=== PATIENT | male | born 1995 | race Caucasian/White ===

== ENCOUNTER 2018-10-29 15:29 | Emergency (ER) | payer OTHER ==
[~2018-10-29] VITALS: Ht 175.3 cm; Wt 79.4 kg
[2018-10-29 15:54] VITALS: BP_SYST 143
--- NOTE | 2018-10-29 15:59 | NUR ---
Patient triaged and placed in waiting room. VSS and patient appears in no acute distress at this time. Accompanied by girlfriend, awaiting available bed, and MD notified of need for MSE.
--- NOTE | 2018-10-29 16:15 | NUR ---
Patient arrived via POV, AAOx4, and accompanied by family. Patient c/c of right lateral ankle injury. Patient states he was playing soc[employer] and rolled ankle. Patient states he went home and tried to rest it. 8 pain continued without relief. +2 peripheral pulses noted to affected extremity. Will continue to follow up and monitor.
--- NOTE | 2018-10-29 17:50 | NUR ---
Patient to ER bed 3 to gown for evaluation. Side rails up. Assumed care.
--- NOTE | 2018-10-29 18:40 | NUR ---
ER at bedside examining patient.
[2018-10-29] MEDS ORDERED: KETOROLAC TROMETHAMINE 30 MG VIAL IM ONE (19:15)
[2018-10-29 19:25] VITALS: BP_SYST 128
== END 2018-10-29 18:40 | disposition home or self-care (01) ==
LOC: SED 15:29
DX: S93.401A Sprain of unspecified ligament of right ankle, initial encounter (principal); X50.9XXA Other and unspecified overexertion or strenuous movements or postures, initial encounter; Y93.89 Activity, other specified; Y92.89 Other specified places as the place of occurrence of the external cause; Y99.8 Other external cause status
CPT/HCPCS: 73610; 96372; 99283; J1885

== ENCOUNTER 2021-01-03 00:49 | Emergency (ER) | payer SELFPAY ==
[~2021-01-03] VITALS: Ht 172.7 cm; Wt 79.4 kg
[2021-01-03 00:49] VITALS: BP_SYST 150
--- NOTE | 2021-01-03 00:49 | NUR ---
Patient to ER bed 5 to gown for evaluation. Side rails up. Report given to lorri.
--- NOTE | 2021-01-03 01:00 | NUR ---
pt a&o x4 from home c/o anxiety that started 2 days ago after he experienced a stomach pain. pt has not taken any medication for the anxiety. pt no longer has the pain. pt denies nausea/vomiting/diarrhea. pt denies SI/HI. pt denies substance use.
--- NOTE | 2021-01-03 01:22 | NUR ---
pt pacing back in forth in room, unable to sit down because he "is too anxious".
[2021-01-03 01:27] LABS: BARBITURATE, URINE NEGATIVE (NEG <=200); BENZODIAZEPINE, URINE NEGATIVE (NEG <=150); CANNABINOID, URINE POSITIVE (NEG <=50); COCAINE, URINE NEGATIVE (NEG <=150); METHAMPHETAMINES SCREEN,URINE NEGATIVE (NEG <=500); OPIATE, URINE NEGATIVE (NEG <=100); PHENCYCLIDINE SCREEN,URINE NEGATIVE (NEG <=25); URINE AMPHETAMINE NEGATIVE (NEG <=500); URINE METHADONE NEGATIVE (NEG <=200); URINE OXYCODONE SCREEN NEGATIVE (NEG <=100); URINE PROPOXYPHENE SCREEN NEGATIVE (NEG <=300)
[2021-01-03 01:28] LABS: UR TRICYCLIC ANTIDEPRESSANTS NEGATIVE (NEG <=300)
--- NOTE | 2021-01-03 01:36 | NUR ---
ER Dr. Carreno at bedside examining patient.
[2021-01-03] MEDS: DIPHENHYDRAMINE INJ 50 MG/ML VIAL IM ONE (01:44)
--- NOTE | 2021-01-03 01:48 | NUR ---
pt medicated per md order. pt tolerated well.
[2021-01-03 02:25] VITALS: BP_SYST 131
--- NOTE | 2021-01-03 02:25 | NUR ---
Patient given written and verbal discharge instructions and verbalizes understanding. ER MD discussed with patient the results and treatment provided. Patient in stable condition. Opportunity for questions provided and answered. Medication side effect fact sheet provided.
[2021-01-03] MEDS ORDERED: PRO40 PO (21:18)
[2021-01-03] MEDS ORDERED: METO-290 PO (21:18)
== END 2021-01-03 02:25 | disposition home or self-care (01) ==
LOC: SED 00:49
DX: G25.71 Drug induced akathisia (principal); F12.90 Cannabis use, unspecified, uncomplicated
CPT/HCPCS: 80307; 93005; 96372; 99284; J1200

== ENCOUNTER 2021-01-03 16:54 | Emergency (ER) | payer SELFPAY ==
[~2021-01-03] VITALS: Ht 170.2 cm; Wt 81.6 kg
[2021-01-03 17:04] VITALS: BP_SYST 99
--- NOTE | 2021-01-03 17:04 | NUR ---
Placed in room 4 . Placed on traffic monitor specialist, blood pressure machine and pulse oximeter. To gown for exam. Side rails up.
--- NOTE | 2021-01-03 17:28 | NUR ---
ER DR. PLAZA AT THE BEDSIDE EXAMINING PT
--- NOTE | 2021-01-03 17:50 | NUR ---
# 20 gauge angiocath placed to LFA. Use of asceptic technique. Opsite placed over site. Blood return noted. Blood for lab drawn from site. Flushed with 10 cc of normal saline. No evidence of infiltration noted. Patient tolerated well.
[2021-01-03 17:58] LABS: BASOPHILS # (AUTO) 0.1 K/uL (0.0-0.2); BASOPHILS % (AUTO) 0.5 % (0.0-2.0); EOSINOPHILS % (AUTO) 0.1 % (0.0-4.0); HEMATOCRIT 44.1 % (36-54); HEMOGLOBIN 15.6 g/dL (14.0-18.0); LYMPHOCYTES # (AUTO) 1.3 K/uL (1.0-5.5); LYMPHOCYTES % (AUTO) 9.8 % (20.5-51.5); MEAN CORPUSCULAR HEMOGLOBIN 31 pg (27-31); MEAN CORPUSCULAR HGB CONC 35 % (32-36); MEAN CORPUSCULAR VOLUME 89 fL (79.0-98.0); MONOCYTES # (AUTO) 0.6 K/uL (0.0-1.0); MONOCYTES % (AUTO) 4.2 % (1.7-9.3); NEUTROPHILS # (AUTO) 11.3 K/uL (1.8-7.7); NEUTROPHILS % (AUTO) 85.4 % (40.0-70.0); PLATELET COUNT (AUTO) 321 K/uL (130-430); RED BLOOD CELL COUNT(AUTO) 4.98 MIL/uL (4.2-6.2); RED CELL DISTRIBUTION WIDTH 12.9 % (9.0-15.0); WHITE BLOOD COUNT (AUTO) 13.2 K/uL (4.8-10.8)
[2021-01-03] MEDS: NACL 0.9% 1,000 ML IV ONE (18:09)
[2021-01-03] MEDS: DIPHENHYDRAMINE INJ 50 MG/ML VIAL IVP ONE ×2 (18:09→20:07)
[2021-01-03 18:10] LABS: CALCIUM 9.3 mg/dL (8.4-11.0); CREATININE 1.06 mg/dL (0.55-1.30); POTASSIUM 3.6 mmol/L (3.5-5.1)
[2021-01-03] MEDS: PANTOPRAZOLE SODIUM 40 MG/VIAL (PROTONIX) IVP ONE (18:10)
[2021-01-03] MEDS: METOCLOPRAMIDE HCL 10 MG/2 ML VIAL IVP ONE ×2 (18:10→20:04)
[2021-01-03] MEDS: MORPHINE 2 MG/ML INJ. SYRINGE IVP ONE ×2 (18:10→20:05)
[2021-01-03 18:16] LABS: ALBUMIN 4.6 g/dL (3.4-4.8); TOTAL BILIRUBIN 0.6 mg/dL (0.0-1.0)
--- NOTE | 2021-01-03 18:22 | NUR ---
PT REPORTS RELIEF WITH MEDICATIONS AND IS NOW RESTING IN BED
--- NOTE | 2021-01-03 18:56 | NUR ---
PT ABLE TO VOID , SPECIMEN COLLECTED AND SENT TO LAB
[2021-01-03 19:01] LABS: BILIRUBIN,URINE NEGATIVE (NEGATIVE); BLOOD, URINE NEGATIVE (NEGATIVE); CLARITY/URINE CLEAR (CLEAR); COLOR,URINE YELLOW (YELLOW); GLUCOSE,URINE NEGATIVE (NEGATIVE); KETONES,URINE 3+ (NEGATIVE); LEUKOCYTE ESTERASE ,URINE NEGATIVE (NEGATIVE); NITRITE, URINE NEGATIVE (NEGATIVE); PH,URINE 8.5 (5.0-8.0); PROTEIN URINE NEGATIVE (NEGATIVE); UROBILINOGEN,URINE 0.2 (0.2-1.0)
--- NOTE | 2021-01-03 19:13 | NUR ---
REPORT GIVEN TO MILO VELASCO FOR CONTINUING CARE
[2021-01-03 19:16] LABS: BACTERIA,URINE RARE /HPF (None Seen); RBC,URINE NONE SEEN /HPF (0-3); WBC,URINE NONE SEEN /HPF (0-3)
--- NOTE | 2021-01-03 19:38 | NUR ---
Dr. Charles at bedside to re-eval.
[2021-01-03 20:37] LABS: BARBITURATE, URINE NEGATIVE (NEG <=200); BENZODIAZEPINE, URINE NEGATIVE (NEG <=150); CANNABINOID, URINE POSITIVE (NEG <=50); COCAINE, URINE NEGATIVE (NEG <=150); METHAMPHETAMINES SCREEN,URINE NEGATIVE (NEG <=500); OPIATE, URINE POSITIVE (NEG <=100); PHENCYCLIDINE SCREEN,URINE NEGATIVE (NEG <=25); UR TRICYCLIC ANTIDEPRESSANTS NEGATIVE (NEG <=300); URINE AMPHETAMINE NEGATIVE (NEG <=500); URINE METHADONE NEGATIVE (NEG <=200); URINE OXYCODONE SCREEN NEGATIVE (NEG <=100); URINE PROPOXYPHENE SCREEN NEGATIVE (NEG <=300)
[2021-01-03] MEDS ORDERED: METO-290 PO (21:18)
[2021-01-03] MEDS ORDERED: PRO40 PO (21:18)
[2021-01-03 21:40] VITALS: BP_SYST 116
--- NOTE | 2021-01-03 21:40 | NUR ---
Patient given written and verbal discharge instructions and verbalizes understanding. ER MD discussed with patient the results and treatment provided. Patient in stable condition. ID arm band removed. IV catheter removed intact and dressing applied, no active bleeding. Rx of Reglan and Protonix given. Patient educated on pain management and to follow up with PMD. Pain Scale 0/10. Opportunity for questions provided and answered. Medication side effect fact sheet provided.
== END 2021-01-03 21:40 | disposition home or self-care (01) ==
LOC: SED 16:54
DX: R11.11 Vomiting without nausea (principal); F12.90 Cannabis use, unspecified, uncomplicated
CPT/HCPCS: 36415; 80053; 80307; 81000; 83690; 85025; 96361; 96374; 96375; 96376; 99284; C9113; J1200; J2270; J2765; J7030

== ENCOUNTER 2022-01-24 17:36 | Emergency (ER) | payer OTHER, MEDICAID ==
[~2022-01-24] VITALS: Ht 172.7 cm; Wt 83.9 kg
[~2022-01-24 17:36] MED LIST: METO-290 PO; PRO40 PO
[2022-01-24 17:48] VITALS: BP_SYST 142
[2022-01-24] MEDS ORDERED: IBUP-1969 PO (18:24)
[2022-01-24] MEDS ORDERED: IBUPROFEN 600 MG TABLET PO ONE (18:30)
[2022-01-24] MEDS ORDERED: HYDROcodone/ACETAMIN 5-325 MG TAB (NORCO/ VICODIN) PO ONE (20:15)
[2022-01-24] MEDS ORDERED: TRAM50TA PO (20:17)
[2022-01-24 20:37] VITALS: BP_SYST 118
== END 2022-01-24 20:36 | disposition home or self-care (01) ==
LOC: SED 17:36
DX: S06.0X0A Concussion without loss of consciousness, initial encounter (principal); S20.212A Contusion of left front wall of thorax, initial encounter; S30.0XXA Contusion of lower back and pelvis, initial encounter; S00.83XA Contusion of other part of head, initial encounter; V49.40XA Driver injured in collision with unspecified motor vehicles in traffic accident, initial encounter; Y93.89 Activity, other specified; Y92.89 Other specified places as the place of occurrence of the external cause; Y99.8 Other external cause status
CPT/HCPCS: 70450-TC; 70486-TC; 71045; 72170-TC; 76376; 93005; 99284

== ENCOUNTER 2022-09-20 15:45 | Emergency (ER) | payer MEDICAID, OTHER ==
[~2022-09-20] VITALS: Ht 170.2 cm; Wt 86.2 kg
[~2022-09-20 15:45] MED LIST changes: +IBUP-1969 PO; +TRAM50TA PO
[2022-09-20 16:11] VITALS: BP_SYST 123
--- NOTE | 2022-09-20 16:20 | NUR ---
# 20 gauge angiocath placed to left antecubital. Use of asceptic technique. Opsite placed over site. Blood return noted. Blood for lab drawn from site. Flushed with 10 cc of normal saline. No evidence of infiltration noted. Patient tolerated well.
--- NOTE | 2022-09-20 16:20 | NUR ---
Pt brought in by self from home. Chief complaint, uncontrollable NV. Pt is restless and encouraged to remain supine in bed for safety. Pt continues to attempt to stand up stating " I feel like I am going to pass out!" Pt assisted to safe position in bed. rails up bed down. Pt states has had intake of large amounts of marijuana. Pt is with right knee sprain from a New Years jadyn fall from excessive alcohol intake as stated per pt.
[2022-09-20] MEDS ORDERED: PANTOPRAZOLE SODIUM 40 MG/VIAL (PROTONIX) IVP ONE (16:45)
[2022-09-20] MEDS ORDERED: NACL 0.9% 1,000 ML IV ONE (16:45)
[2022-09-20] MEDS ORDERED: METOCLOPRAMIDE HCL 10 MG/2 ML VIAL IVP ONE (16:45)
[2022-09-20] MEDS ORDERED: DIPHENHYDRAMINE INJ 50 MG/ML VIAL IVP ONE (16:45)
[2022-09-20] MEDS ORDERED: ONDANSETRON HCL 4 MG/2 ML VIAL IVP ONE ×2 (16:45→18:30)
--- NOTE | 2022-09-20 16:45 | NUR ---
Note undone in EDM - 09/20/22 at 1708 by MARITZA # 20 gauge angiocath placed to left antecubital. Use of asceptic technique. Opsite placed over site. Blood return noted. Blood for lab drawn from site. Flushed with 10 cc of normal saline. No evidence of infiltration noted. Patient tolerated well.
--- NOTE | 2022-09-20 16:45 | NUR ---
ER at bedside examining patient.
[2022-09-20 17:00] LABS: BASOPHILS # (AUTO) 0.1 K/uL (0.0-0.2); BASOPHILS % (AUTO) 0.4 % (0.0-2.0); EOSINOPHILS # (AUTO) 0.1 K/uL (0.0-0.4); EOSINOPHILS % (AUTO) 0.4 % (0.0-4.0); HEMATOCRIT 45.3 % (36-54); HEMOGLOBIN 15.4 g/dL (14.0-18.0); LYMPHOCYTES # (AUTO) 1.5 K/uL (1.0-5.5); LYMPHOCYTES % (AUTO) 11.6 % (20.5-51.5); MEAN CORPUSCULAR HEMOGLOBIN 30 pg (27-31); MEAN CORPUSCULAR HGB CONC 34 % (32-36); MEAN CORPUSCULAR VOLUME 89 fL (79.0-98.0); MONOCYTES # (AUTO) 0.6 K/uL (0.0-1.0); MONOCYTES % (AUTO) 4.5 % (1.7-9.3); NEUTROPHILS # (AUTO) 10.4 K/uL (1.8-7.7); NEUTROPHILS % (AUTO) 83.1 % (40.0-70.0); PLATELET COUNT (AUTO) 366 K/uL (130-430); RED BLOOD CELL COUNT(AUTO) 5.11 MIL/uL (4.2-6.2); RED CELL DISTRIBUTION WIDTH 12.8 % (9.0-15.0); WHITE BLOOD COUNT (AUTO) 12.5 K/uL (4.8-10.8)
--- NOTE | 2022-09-20 17:03 | NUR ---
RX medicated per MD order, tolerated well.
--- NOTE | 2022-09-20 17:04 | NUR ---
MILO Saundesr medicated pt per MD order to clarify previous note.
--- NOTE | 2022-09-20 17:16 | NUR ---
Pt VSS within normal limits pt is resting comfortably without complaint or distress.
[2022-09-20 17:36] LABS: CALCIUM 9.3 mg/dL (8.4-11.0); CREATININE 0.9 mg/dL (0.55-1.30)
[2022-09-20 17:41] LABS: ALBUMIN 4.1 g/dL (3.4-4.8); TOTAL BILIRUBIN 0.4 mg/dL (0.0-1.0)
[2022-09-20] MEDS ORDERED: KETOROLAC TROMETHAMINE 30 MG VIAL IVP ONE (19:00)
--- NOTE | 2022-09-20 19:00 | NUR ---
Pt asleep without complaint, IVF running no infilltration noted.
[2022-09-20] MEDS ORDERED: LIDOCAINE VISCOUS 2%, 15 ML UDC MM ONE (21:15)
[2022-09-20] MEDS ORDERED: BELLADONNA ALKALOIDS/PHENOBARB 5 ML UDC PO ONE (21:15)
[2022-09-20] MEDS ORDERED: MAG-AL HYDROX/SIMETH 30 ML UDC PO ONE (21:15)
[2022-09-20] MEDS ORDERED: ONDA-8 TL (21:30)
[2022-09-20] MEDS ORDERED: POTASSIUM CHLORIDE 20 MEQ/PKT PACKET PO ONE (21:30)
[2022-09-20] MEDS ORDERED: OMEP-268 PO (21:30)
--- NOTE | 2022-09-20 21:45 | NUR ---
Patient given written and verbal discharge instructions and verbalizes understanding. ER MD discussed with patient the results and treatment provided. Patient in stable condition. ID arm band removed. IV catheter removed intact and dressing applied, no active bleeding. Patient educated on abdominal pain related to cannabis over intake and to follow up with PMD. Opportunity for questions provided and answered. Medication side effect fact sheet provided.
[2022-09-20 22:32] VITALS: BP_SYST 123
== END 2022-09-20 21:45 | disposition home or self-care (01) ==
LOC: SED 15:45
DX: R11.10 Vomiting, unspecified (principal); R10.12 Left upper quadrant pain; R10.13 Epigastric pain; F17.200 Nicotine dependence, unspecified, uncomplicated; F12.90 Cannabis use, unspecified, uncomplicated; Z79.899 Other long term (current) drug therapy
CPT/HCPCS: 99284; 96374; 96375; 96361; 80053; 83690; 85025; 36415; 96376; J2001; J1200; J1885; J2765; J2405; C9113; J7030

== ENCOUNTER 2023-11-29 01:13 | Emergency (ER) | payer MEDICAID ==
[~2023-11-29] VITALS: Ht 172.7 cm; Wt 86.2 kg
[~2023-11-29 01:13] MED LIST changes: +OMEP-268 PO; +ONDA-8 TL
[2023-11-29 01:20] VITALS: BP_SYST 143; PULSE 81; RESP 20; TEMP 97.3; O2SAT 98
[2023-11-29] MEDS: METOCLOPRAMIDE HCL 10 MG/2 ML VIAL IVP ONE (01:47)
[2023-11-29] MEDS: NACL 0.9% 1,000 ML IV ONE (01:48)
[2023-11-29 01:53] LABS: BASOPHILS # (AUTO) 0.1 K/uL (0.0-0.2); BASOPHILS % (AUTO) 0.4 % (0.0-2.0); EOSINOPHILS % (AUTO) 0.4 % (0.0-4.0); HEMATOCRIT 43.5 % (36-54); HEMOGLOBIN 15.1 g/dL (14.0-18.0); LYMPHOCYTES # (AUTO) 2.3 K/uL (1.0-5.5); LYMPHOCYTES % (AUTO) 18.4 % (20.5-51.5); MEAN CORPUSCULAR HEMOGLOBIN 30 pg (27-31); MEAN CORPUSCULAR HGB CONC 35 % (32-36); MEAN CORPUSCULAR VOLUME 86 fL (79.0-98.0); NEUTROPHILS % (AUTO) 72.8 % (40.0-70.0); PLATELET COUNT (AUTO) 303 K/uL (130-430); RED BLOOD CELL COUNT(AUTO) 5.03 MIL/uL (4.2-6.2); RED CELL DISTRIBUTION WIDTH 13.2 % (9.0-15.0); WHITE BLOOD COUNT (AUTO) 12.4 K/uL (4.8-10.8)
[2023-11-29 01:57] LABS: CALCIUM 8.9 mg/dL (8.4-11.0); CREATININE 0.87 mg/dL (0.55-1.30); POTASSIUM 3.7 mmol/L (3.5-5.1)
[2023-11-29 02:01] LABS: BILIRUBIN,DIRECT 0.1 mg/dL (0.0-0.3); TOTAL BILIRUBIN 0.5 mg/dL (0.0-1.0); TOTAL PROTEIN, SERUM 7.8 g/dL (6.4-8.3)
[2023-11-29] MEDS: LORazepam 2 MG/ML VIAL IVP ONE (02:06)
[2023-11-29] MEDS: MORPHINE 2 MG/ML INJ. SYRINGE IVP ONE (02:08)
[2023-11-29 02:37] LABS: BARBITURATE, URINE NEGATIVE (NEG <=200); BENZODIAZEPINE, URINE NEGATIVE (NEG <=150); CANNABINOID, URINE POSITIVE (NEG <=50); COCAINE, URINE NEGATIVE (NEG <=150); METHAMPHETAMINES SCREEN,URINE NEGATIVE (NEG <=500); OPIATE, URINE NEGATIVE (NEG <=100); PHENCYCLIDINE SCREEN,URINE NEGATIVE (NEG <=25); URINE AMPHETAMINE NEGATIVE (NEG <=500); URINE METHADONE NEGATIVE (NEG <=200); URINE OXYCODONE SCREEN NEGATIVE (NEG <=100)
[2023-11-29 02:38] LABS: UR TRICYCLIC ANTIDEPRESSANTS NEGATIVE (NEG <=300)
[2023-11-29] MEDS ORDERED: PRO40 PO (04:33)
[2023-11-29 04:55] VITALS: BP_SYST 124; PULSE 79; RESP 16; TEMP 98.4; O2SAT 97
== END 2023-11-29 04:50 | disposition home or self-care (01) ==
LOC: SED 01:13
DX: F12.188 Cannabis abuse with other cannabis-induced disorder (principal); E86.0 Dehydration; R10.9 Unspecified abdominal pain; Z79.899 Other long term (current) drug therapy
CPT/HCPCS: 99285; 74176; 96374; 96375; 96361; 80307; 80076; 80048; 83690; 85025; 36415; J2060; J2765; J2270; J7030

== ENCOUNTER 2023-11-29 10:56 | Emergency (ER) | payer MEDICAID ==
[~2023-11-29] VITALS: Ht 172.7 cm; Wt 86.2 kg
[2023-11-29 10:56] VITALS: BP_SYST 156; PULSE 75; RESP 18; TEMP 98.6; O2SAT 99
[2023-11-29] MEDS: HALOPERIDOL LACTATE 5 MG/ML VIAL IM ONE (11:19)
[2023-11-29 11:28] LABS: BASOPHILS % (AUTO) 0.3 % (0.0-2.0); EOSINOPHILS % (AUTO) 0.4 % (0.0-4.0); HEMATOCRIT 44.2 % (36-54); HEMOGLOBIN 15.3 g/dL (14.0-18.0); LYMPHOCYTES # (AUTO) 2.1 K/uL (1.0-5.5); LYMPHOCYTES % (AUTO) 21.3 % (20.5-51.5); MEAN CORPUSCULAR HEMOGLOBIN 31 pg (27-31); MEAN CORPUSCULAR HGB CONC 35 % (32-36); MEAN CORPUSCULAR VOLUME 89 fL (79.0-98.0); MONOCYTES # (AUTO) 0.7 K/uL (0.0-1.0); MONOCYTES % (AUTO) 7.5 % (1.7-9.3); NEUTROPHILS # (AUTO) 6.8 K/uL (1.8-7.7); NEUTROPHILS % (AUTO) 70.5 % (40.0-70.0); PLATELET COUNT (AUTO) 299 K/uL (130-430); RED BLOOD CELL COUNT(AUTO) 4.98 MIL/uL (4.2-6.2); RED CELL DISTRIBUTION WIDTH 13.2 % (9.0-15.0); WHITE BLOOD COUNT (AUTO) 9.7 K/uL (4.8-10.8)
[2023-11-29 11:40] LABS: ANION GAP 11 (5-15); CALCIUM 8.9 mg/dL (8.4-11.0); CARBON DIOXIDE 26 mmol/L (23-29); CHLORIDE 106 mmol/L (98-107); CREATININE 0.95 mg/dL (0.55-1.30); GFR AFRICAN AMERICAN 121 mL/min (>90); GLUCOSE 101 mg/dL (74-106); POTASSIUM 3.5 mmol/L (3.5-5.1); SODIUM SERUM 143 mmol/L (136-145); UREA NITROGEN, BLOOD 13 mg/dL (8-21)
[2023-11-29 11:44] LABS: ALANINE AMINOTRANSFERASE 28 U/L (12-78); ALBUMIN 3.8 g/dL (3.4-4.8); AMYLASE 45 U/L (0-100); ASPARTATE AMINOTRANSFERASE 11 U/L (10-37); BILIRUBIN,DIRECT 0.1 mg/dL (0.0-0.3); GFR NON AFRICAN-AMERICAN 100 mL/min (>90); LIPASE 31 U/L (16-77); TOTAL BILIRUBIN 0.6 mg/dL (0.0-1.0); TOTAL PROTEIN, SERUM 7.4 g/dL (6.4-8.3)
[2023-11-29 12:09] LABS: ACETONE, SERUM NEGATIVE (NEGATIVE)
== END 2023-11-29 10:57 | disposition left against medical advice (07) ==
LOC: SED 10:56
DX: R11.15 Cyclical vomiting syndrome unrelated to migraine (principal); R10.13 Epigastric pain; Z79.899 Other long term (current) drug therapy
CPT/HCPCS: 99283; 80076; 80048; 82009; 82150; 83690; 85025; 36415; 96372; 83605; J1630

== ENCOUNTER 2023-11-29 20:24 | Emergency (ER) | payer MEDICAID ==
[~2023-11-29] VITALS: Ht 172.7 cm; Wt 86.2 kg
[2023-11-29 20:25] VITALS: BP_SYST 158; PULSE 88; RESP 20; TEMP 98; O2SAT 96
[2023-11-29 21:14] VITALS: BP_SYST 155; PULSE 87; RESP 17; TEMP 98; O2SAT 96
== END 2023-11-29 21:14 | disposition home or self-care (01) ==
LOC: SED 20:24
DX: F41.9 Anxiety disorder, unspecified (principal); F12.90 Cannabis use, unspecified, uncomplicated; Z79.899 Other long term (current) drug therapy
CPT/HCPCS: 99283

== ENCOUNTER 2023-12-02 10:09 | Emergency (ER) | payer MEDICAID ==
[~2023-12-02] VITALS: Ht 172.7 cm; Wt 83.0 kg
[2023-12-02 10:15] VITALS: BP_SYST 149; PULSE 66; RESP 19; TEMP 97.1; O2SAT 99
[2023-12-02] MEDS: DIPHENHYDRAMINE INJ 50 MG/ML VIAL IM ONE (11:30)
[2023-12-02] MEDS: HALOPERIDOL LACTATE 5 MG/ML VIAL IM ONE (11:30)
[2023-12-02] MEDS: KETOROLAC TROMETHAMINE 30 MG VIAL IM ONE (12:22)
[2023-12-02 13:16] VITALS: BP_SYST 156; PULSE 67; RESP 20; TEMP 97.8; O2SAT 100
[2023-12-02] MEDS: DIPHENHYDRAMINE HCL 25 MG CAPSULE PO ONE (13:24)
== END 2023-12-02 13:05 | disposition left against medical advice (07) ==
LOC: SED 10:09
DX: R11.2 Nausea with vomiting, unspecified (principal); R10.9 Unspecified abdominal pain; Z79.899 Other long term (current) drug therapy
CPT/HCPCS: 99284; 96372; Q0163; J1200; J1630; J1885